=== PATIENT | male | born 1950 | race Caucasian/White ===

== ENCOUNTER 2022-02-07 23:57 | Outpatient (CLI) | payer OTHER, MEDICARE, SELFPAY | END 2022-02-07 23:58 | disposition home or self-care (01) | LOC: AMB 02-21 10:13 | PROVIDERS: PCP Family Medicine; Visit Provider Internal Medicine | DX: R50.9 Fever, unspecified (principal); R53.83 Other fatigue; R60.0 Localized edema | CPT/HCPCS: A0425; A0429 ==

== ENCOUNTER 2022-02-08 00:27 | Emergency (ER) | payer OTHER, SELFPAY ==
[2022-02-08 00:30] VITALS: BP 146/85; PULSE 95; RESP 26; TEMP 36.9; O2SAT 95; BMI 34.3
--- NOTE | 2022-02-08 00:38 | CRLHL7_ITS ---
For Patients: As a result of the Century Cures Act, medical imaging exams and procedure reports are released immediately into your electronic medical record. You may view this report before your referring provider. If you have questions, please contact your health care provider. INDICATION: Shortness of breath. COMPARISON: None available. FINDINGS: PA and lateral views of the chest were obtained. The lungs are clear. No focal or diffuse infiltrates are present. Incidental note is made of an azygos fissure. The heart is top normal in size. There is tortuosity of the aortic arch. The rest of the mediastinum is normal in appearance. The osseous structures are normal in appearance for the patient`s age. IMPRESSION: No active disease seen in the chest. Dictated by Edwin Sandoval MD @ 02/08/2022 1:47:33 AM (Electronically Signed)
--- NOTE | 2022-02-08 00:39 | ED_ITS ---
HPI - General Adult General Chief complaint: Fever Stated complaint: Shortness of breath/fever Time Seen by Provider: 02/08/22 00:30 History of Present Illness HPI narrative: Pt is a 71 year old gentleman who lives at [address] [place] [address] who had subjective shortness of breath and a low grade fever tonight. No other localizing symptoms such as dysuria, abd pain, rash, cough or uri symptoms. Pt is not sure why they brought him in as he states that he feels fine. Pt has not been ill per his report and appears to be up to date on his COVID vaccinations. Pt has chronic lower etremity edema with status dermatitis of his lower extremities but no recent changes. No pain. Review of Systems Status of ROS: Reports: 10 or more systems reviewed and unremarkable except as noted in History and below Exam Narrative: Exam Narrative: EXAM GENERAL: Patient appears comfortable and well. EYES: No scleral icterus. THYROID: no thyroid nodules or thyromegaly. LYMPH: No supraclavicular or cervical lymphadenopathy. SKIN: Visible skin seen during exam normal or with benign process only. EXT: Chronic lower extremity edema with stasis dermatitis anteriorly between the knee and ankle bilaterally. HEART: Regular rate and rhythm with no murmurs, rubs, or gallops. LUNGS: Clear to auscultation bilaterally with no crackles or wheezes. ABD: Soft, non tender, non distended. PSYCH: Good eye contact, speech is not pressured. Const: Vital Signs, click to edit/add: Vital Signs - 24 hr 02/08/22 00:30 Temperature 98.4 F Pulse Rate [Right Pulse Oximeter] 95 Respiratory Rate 26 H Blood Pressure [Le ft Upper Arm] 146/85 H Pulse Oximetry 95 Oxygen Delivery Me thod Room Air Course Course Hospital Course: Pt appears to be in no distress. Respirations on my count 18. No signs of fever and oxygen saturation is 95% on room air with nonlabored breathing. CBC, BMP, COVID, UA, Chest X ray ordered. Reevaluation(s) Reevaluation #1: Daughter here. Pt resting comfortably. The two issues that he was sent in for hypoxia and fever are not apparent on repeated measurement. Chest x ray upon my review shows a poor inspiration with Cardiomegally. WBC noted to be elevated as is glucose with hyponatremia noted. Time: 01:37 Vital Signs Vital signs: Initial Vital Signs Temperature 98.4 F 02/08/22 00:30 Temperature Source Temporal Artery Scan 02/08/22 00:30 Pulse Rate 95 02/08/22 00:30 Respiratory Rate 26 H 02/08/22 00:30 Blood Pressure 146/85 H 02/08/22 00:30 Blood Pressure Mean 105 02/08/22 00:30 Blood Pressure Position Supine 02/08/22 00:30 Pulse Oximetry 95 02/08/22 00:30 Oxygen Delivery Method 02/08/22 00:30 Vital Signs Temperature 98.4 F 02/08/22 00:30 Pulse Rate 95 02/08/22 00:30 Respiratory Rate 26 H 02/08/22 00:30 Blood Pressure 146/85 H 02/08/22 00:30 Pulse Oximetry 95 02/08/22 00:30 Oxygen Delivery Method 02/08/22 00:30 Temperature 98.4 F 02/08/22 00:30 Pulse Rate 95 02/08/22 00:30 Respiratory Rate 26 H 02/08/22 00:30 Blood Pressure 146/85 H 02/08/22 00:30 Pulse Oximetry 95 02/08/22 00:30 Oxygen Delivery Method 02/08/22 00:30 Medical Decision Making MDM Narrative Medical decision making narrative: Pt is brought in for evaluation of hypoxia and fever neither of which are present. Pt does have leukocytosis which is of course nonspecifice. Chest x ray shows cardiomegally and poor inspiration. Mild hyponatremia and chronic hyperglycemia noted. Pt daughter does not want urine cath collected which is reasonable. Pt resting comfortably but is chronically ill. I will collect blood cultures and treat with 1 gram of Rocephin incase pt is developing a signifciant infection. COVID testing pending. Pt is DNR/DNI per daughter. [facility]. Differential Diagnosis Differential Diagnosis: Fever, Sepsis, Pneumonia, COVID, UTI, URI, CHF Lab Data Labs: Lab Results 02/08/22 02/08/22 Range/Units 01:00 01:00 WBC 24.84 H (4.50-11.00) K/uL RBC 4.66 (4.30-5.90) m/uL Hgb 11.5 L (13.5-17.5) gm/dL Hct 35.3 L (37.0-53.0) % MCV 76 L (80-100) fL MCH 25 L (26-34) pg MCHC 33 (32-36) gm/dL RDW Coeff of Rolo 13.9 (11.5-15.5) % Plt Count 274 (140-440) K/uL Neut % (Auto) 84.6 H (42.0-72.0) % Lymph % (Auto) 4.5 L (20-44) % [place] % (Auto) 8.2 (0.0-11.0) % Eos % (Auto) 0.0 (0.0-7.0) % Baso % (Auto) 2.0 (0.0-3.0) % Neut # (Auto) 21.00 H (1.7-7.0) K/uL Lymph # (Auto) 1.10 (0.90-2.90) K/uL [place] # (Auto) 2.00 H (0.00-0.90) K/UL Eos # (Auto) 0.00 (0.00-0.50) K/uL Baso # (Auto) 0.50 H (0.00-0.30) K/uL Abs Immat Gran (auto) 0.18 (0.00-0.30) K/uL Sodium 128 L (135-149) mmol/L Potassium 4.2 (3.6-5.1) mmol/L Chloride 93 L (96-114) mmol/L Carbon Dioxide 25 (20-32) mmol/L BUN 21 (7-30) mg/dL Creatinine 1.0 (0.5-1.5) mg/dL Estimated Creat Clear 75.46 Estimated GFR 80 ml/min Glucose 361 H* (60-115) mg/dL Calcium 8.9 (8.4-10.6) mg/dL Discharge Plan Discharge Clinical Impression: Weakness Patient Disposition: Xfer [facility] Discharge Location: [facility] Condition: Stable Instructions: Weakness (ED) Additional Instructions: Continue current care watching for signs of worsening symptoms Activity Level: Activity as Tolerated Discharge Diet: Diabetic Follow Up/Referrals: Rafael Prather MD [Primary Care Provider] - Stand Alone Forms: MyHealth Info Instructions
[2022-02-08 01:09] LABS: Hematocrit 35.3 % (37.0-53.0); Hemoglobin* 11.5 gm/dL (13.5-17.5); Mean Corpuscular HGB Conc 33 gm/dL (32-36); Mean Corpuscular Hemoglobin 25 pg (26-34); Mean Corpuscular Volume 76 fL (80-100); Platelet Count* 274 K/uL (140-440); RDW Coefficient of Variation % 13.9 % (11.5-15.5); Red Blood Count 4.66 m/uL (4.30-5.90); White Blood Count* 24.84 K/uL (4.50-11.00)
[2022-02-08 01:11] LABS: Slide Review Reflex Yes
[2022-02-08 01:28] LABS: Chloride* 93 mmol/L (96-114); Potassium* 4.2 mmol/L (3.6-5.1); Sodium* 128 mmol/L (135-149)
[2022-02-08 01:31] LABS: Blood Urea Nitrogen* 21 mg/dL (7-30); Carbon Dioxide* 25 mmol/L (20-32); Est. Creatinine Clearance* 75.46; Estimated Glomerular Filt Rate 80 ml/min
[2022-02-08 01:32] LABS: Calcium* 8.9 mg/dL (8.4-10.6)
[2022-02-08 01:33] LABS: Glucose* 361 mg/dL (60-115)
[2022-02-08 01:36] LABS: Slide Review Req Man Differential (Acceptable)
[2022-02-08 01:37] LABS: Total Cells Counted 100
--- NOTE | 2022-02-08 01:40 | ED.NURSE ---
md mitchell updated on critical glucose.
[2022-02-08 02:00] LABS: PCR FLU A Negative PCR FLU A (Negative); PCR FLU B Negative PCR FLU B (Negative)
--- NOTE | 2022-02-08 02:23 | ED.NURSE ---
report given to Agnes at [facility]. pt. will be transferred by [facility]. daughter, Lashell Tavarez is at bedside and agrees with this plan.
[2022-02-08] MEDS: LIDOCAINE 1% 5 ml (pf) 5 ML VIAL 2.1 ML IM (02:34)
[2022-02-08] MEDS: cefTRIAXone 1 GM VIAL IM (02:34)
[2022-02-08 02:41] LABS: SARS PCR* Negative SARS-CoV-2 (Negative)
[2022-02-08 02:42] VITALS: BP 154/78; PULSE 89; RESP 26; TEMP 36.9; O2SAT 95
[2022-02-08 02:46] VITALS: BP 146/85; PULSE 95; RESP 26; TEMP 36.9; O2SAT 95
[2022-02-08 02:54] VITALS: BP 146/85; PULSE 95; RESP 26; TEMP 36.9
== END 2022-02-08 02:55 ==
PROVIDERS: Emergency Provider Internal Medicine; PCP Family Medicine
DX: R53.1 Weakness (principal)
CPT/HCPCS: 36415; 71046; 80048; 81003; 85007; 85025; 87040; 87631; 94761; 96372; 99283; 99284; J0696

== ENCOUNTER 2022-02-08 02:37 | Outpatient (CLI) | payer OTHER, MEDICARE, SELFPAY | END 2022-02-08 02:38 | disposition home or self-care (01) | LOC: AMB 02-21 09:55 | PROVIDERS: PCP Family Medicine; Visit Provider Internal Medicine | DX: R53.1 Weakness (principal); R50.9 Fever, unspecified; F03.90 Unspecified dementia, unspecified severity, without behavioral disturbance, psychotic disturbance, mood disturbance, and anxiety | CPT/HCPCS: A0425; A0428 ==

== ENCOUNTER 2022-02-17 13:18 | Outpatient (REF) | payer OTHER, SELFPAY ==
[2022-02-17 13:46] LABS: Hematocrit 39.1 % (37.0-53.0); Hemoglobin* 12.1 gm/dL (13.5-17.5); Mean Corpuscular HGB Conc 31 gm/dL (32-36); Mean Corpuscular Hemoglobin 24 pg (26-34); Mean Corpuscular Volume 78 fL (80-100); Platelet Count* 482 K/uL (140-440); White Blood Count* 11.04 K/uL (4.50-11.00)
[2022-02-17 13:48] LABS: Slide Review Reflex No
[2022-02-17 14:04] LABS: Chloride* 97 mmol/L (96-114)
[2022-02-17 14:05] LABS: Sodium* 134 mmol/L (135-149)
[2022-02-17 14:07] LABS: Carbon Dioxide* 27 mmol/L (20-32); Creatinine* 0.9 mg/dL (0.5-1.5); Estimated Glomerular Filt Rate 91 ml/min
[2022-02-17 14:08] LABS: Blood Urea Nitrogen* 17 mg/dL (7-30); Calcium* 8.6 mg/dL (8.4-10.6); Glucose* 151 mg/dL (60-115)
== END 2022-02-17 13:19 | disposition home or self-care (01) ==
LOC: LAB 13:18
PROVIDERS: PCP Family Medicine; Visit Provider Nurse Practitioner Adult Health
DX: D72.829 Elevated white blood cell count, unspecified (principal)
CPT/HCPCS: 36415; 80048; 85027